=== PATIENT | male | born 1965 | race Caucasian/White ===

== ENCOUNTER 2016-09-10 12:04 | Emergency (ER) | payer BC ==
--- NOTE | ~2016-09-10 | EKG ---
PATIENT: ROBIN GREER UNIT #: [id number] Ventricular Rate: 77 BPM Atrial Rate: 77 BPM P-R Interval: 136 ms QRS Duration: 90 ms Q-T Interval: 374 ms QTC Calculation(Bezet): 423 ms P [place]: 65 degrees Calculated R [place]: 35 degrees Calculated T [place]: 70 degrees Diagnosis Line: Normal sinus rhythm Diagnosis Line: Nonspecific T wave abnormality Diagnosis Line: Abnormal ECG Diagnosis Line: Diagnosis Line: Confirmed by FAITH SIMEON MD ([id number]) on 09/11/2016 Diagnosis Line: 7:01:58 AM INTERPRETING MD: CAILIN DWYER
--- NOTE | ~2016-09-10 | CR72 ---
[facility] A Service of [facility] & [facility] RADIOLOGY TEXT RESULTS PATIENT: ROBIN GREER LOCATION: [facility] : 67 UNIT #: [id number] AGE: [address]: Larry Mann MD SEX: M ORDER DR: [id number] [facility]. [place], [place] [address] [id number] E MR#: [id number] Acc #: [id number] NAME: ROBIN GREER : 1965 SEX: M STUDY DATE/TIME: 09/10/2016 11:35 UNIT: [facility] ROOM: STUDY DESCRIPTION: CR Chest Single View Portable Attending Physician: Larry Mann M.D. Ordering Physician: Larry Mann M.D. MEDICAL IMAGING REPORT This report is preliminary unless electronic signature is present EXAM Chest x-ray 09/10/2016. HISTORY 50-year-old male in the ED complaining of 2-day history of shortness of air, cough and chest pain. TECHNIQUE AP upright chest images were obtained. FINDINGS The examination is negative. The lungs are expanded and clear. No visible pulmonary infiltrate or pleural effusion. Heart size and pulmonary vascularity are normal. IMPRESSION Negative chest. Dictated by... Todd Hartmann M.D. THIS IS AN ELECTRONICALLY VERIFIED REPORT Todd Hartmann M.D. at 09/11/2016 8:40 AM KIM/vivian TD: 09/10/2016 19:02 JOB #: [id number] MEDICAL IMAGING REPORT COPY
[2016-09-10 12:29] LABS: BASOPHIL# 0.1 X10e3 (0-0.3); BASOPHIL% 1.3 % (0-2.5); EOSINOPHIL# 0.3 X10e3 (0-0.7); EOSINOPHIL% 3.7 % (0.0-7.0); HEMATOCRIT 43.5 % (38.0-50.0); HEMOGLOBIN 15.2 gm/dL (13.0-16.0); LYMPHOCYTE# 2.2 X10e3 (1.0-3.5); LYMPHOCYTE% 31.1 % (17.0-45.0); MEAN CELL VOLUME 85.8 FL (83-96); MEAN CORPUSCULAR HEMOGLOBIN 29.9 PG (28-34); MEAN CORPUSCULAR HGB CONC 34.9 g/dL (30-36); MEAN PLATELET VOLUME 8.7 FL (6.5-11.5); MONOCYTE# 0.5 X10e3 (0-1.0); NEUTROPHIL# 4.1 X10e3 (1.5-7.1); NEUTROPHIL% 56.9 % (40-75); PLATELET COUNT 234 X10e3 (140-420); RED BLOOD COUNT 5.07 X10e (3.90-5.60); RED CELL DISTRIBUTION WIDTH 13.2 % (11.0-15.5); WHITE BLOOD COUNT 7.2 X10e3 (4.0-10.5)
[2016-09-10 12:33] LABS: DIFF IND NO
[2016-09-10 12:53] LABS: POC - CKMB 1.2 ng/mL (0.0-7.9); POC - TROPONIN <0.05 ng/mL (<=0.05)
[2016-09-10 12:58] LABS: ALBUMIN SERUM 4.8 g/dL (3.5-5.0); ALKALINE PHOSPHATASE 67 U/L (32-92); ALT (SGPT) 29 U/L (10-40); AST (SGOT) 19 U/L (10-42); BILIRUBIN, DIRECT 0.1 mg/dL (0.0-0.2); BILIRUBIN,INDIRECT 0.7 mg/dL (0.0-0.9); BILIRUBIN,TOTAL 0.8 mg/dL (0.2-2.0); BLOOD UREA NITROGEN 12 mg/dL (9-23); BUN/CREATININE RATIO 13.33; CALCIUM SERUM 9.5 mg/dL (8.4-10.2); CARBON DIOXIDE 28 mmol/L (22-31); CHLORIDE 102 mmol/L (100-111); CREATININE SERUM 0.9 mg/dL (0.6-1.4); GLOM FILT RATE Estimated ABOVE60 mL/min (>60); GLUCOSE FASTING 177 mg/dL (70-110); POTASSIUM 4.4 mmol/L (3.5-5.1); PROTEIN TOTAL SERUM 7.6 g/dL (6.0-8.3); SODIUM 138 mmol/L (135-145)
== END 2016-09-10 13:20 | disposition home or self-care (01) ==
LOC: CED 12:04
PROVIDERS: Emergency Medicine
DX: J44.1 Chronic obstructive pulmonary disease with (acute) exacerbation (principal); E11.9 Type 2 diabetes mellitus without complications
CPT/HCPCS: 36415; 71010; 80048; 80076; 82553; 84484; 85025; 93005; 94640; 99284; J2405; J2930

== ENCOUNTER 2017-03-01 06:21 | Emergency (ER) | payer BC ==
[~2017-03-01] VITALS: Ht 175.3 cm; Wt 108.9 kg
--- NOTE | ~2017-03-01 | CR72 ---
[facility] A Service of [facility] & [facility] RADIOLOGY TEXT RESULTS PATIENT: ROBIN GREER LOCATION: [facility] : 67 UNIT #: [id number] AGE: [address]: Clifford Sutton DO SEX: M ORDER DR: [id number] [facility] [address] [facility]. [place], [place] [address] [id number] E MR#: [id number] Acc #: [id number] NAME: ROBIN GREER : 1965 SEX: M STUDY DATE/TIME: 03/01/2017 8:48 UNIT: [facility] ROOM: STUDY DESCRIPTION: CR Chest Single View Portable Attending Physician: Clifford Sutton D.O. Ordering Physician: Clifford Sutton D.O. Primary Care Physician: No Primary Care Physician MEDICAL IMAGING REPORT This report is preliminary unless electronic signature is present EXAM Portable chest HISTORY Shortness of breath, throat swelling, and cough beginning on 02/28/2017. TECHNIQUE A single AP view of the chest was obtained. COMPARISON 09/10/2016 FINDINGS A single AP portable view of the chest shows both lungs to be clear. The heart is normal in size. The mediastinal contour is normal. No significant bone abnormalities are seen. IMPRESSION Normal portable chest. Dictated by... Adam Mims M.D. THIS IS AN ELECTRONICALLY VERIFIED REPORT Adam Mims M.D. at 03/01/2017 4:10 PM JUAN LUIS/megan TD: 03/01/2017 13:15 JOB #: [id number] MEDICAL IMAGING REPORT Page 1 of 1 COPY
--- NOTE | ~2017-03-01 | CR195 ---
[facility] A Service of [facility] & [facility] RADIOLOGY TEXT RESULTS PATIENT: ROBIN GREER LOCATION: [facility] : 67 UNIT #: [id number] AGE: [address]: Clifford Sutton DO SEX: M ORDER DR: [id number] [facility] [address] [place], [place] [address] [id number] E MR#: [id number] Acc #: [id number] NAME: ROBIN GREER : 1965 SEX: M STUDY DATE/TIME: 03/01/2017 7:34 UNIT: [facility] ROOM: STUDY DESCRIPTION: CR Neck Soft Tissue Attending Physician: Clifford Sutton D.O. Ordering Physician: Clifford Sutton D.O. Primary Care Physician: No Primary Care Physician MEDICAL IMAGING REPORT This report is preliminary unless electronic signature is present EXAM Soft tissue neck series 03/01/2017 HISTORY Pain and swelling in throat; feels like something caught. Short of air. FINDINGS AP and lateral radiographs of the neck obtained with soft tissue detail. Patient is missing multiple teeth. Scattered dental fillings. Degenerative change in the cervical spine most pronounced C5-C6. No acute-appearing bony abnormality. Prevertebral soft tissues show no definite abnormality. There is no indication of submucosal air. The epiglottis and aryepiglottic fold regions appear within normal limits, given obliquity. There is no radiodense foreign body. The lung apices appear clear. If further assessment of cervical soft tissues would assist in management, consider contrast-enhanced CT of neck. Dictated by... Ramon Gamez M.D. THIS IS AN ELECTRONICALLY VERIFIED REPORT Ramon Gamez M.D. at 03/03/2017 9:44 PM NICKOLAS/megan TD: 03/01/2017 11:47 JOB #: [id number] MEDICAL IMAGING REPORT Page 1 of 1 COPY
[2017-03-01 07:21] LABS: BASOPHIL# 0.1 X10e3 (0-0.3); DIFF IND NO; EOSINOPHIL# 0.1 X10e3 (0-0.7); EOSINOPHIL% 0.6 % (0.0-7.0); HEMATOCRIT 46.3 % (38.0-50.0); HEMOGLOBIN 15.9 gm/dL (13.0-16.0); LYMPHOCYTE# 2.2 X10e3 (1.0-3.5); LYMPHOCYTE% 14.8 % (17.0-45.0); MEAN CELL VOLUME 87.2 FL (83-96); MEAN CORPUSCULAR HEMOGLOBIN 29.9 PG (28-34); MEAN CORPUSCULAR HGB CONC 34.3 g/dL (30-36); MEAN PLATELET VOLUME 8.6 FL (6.5-11.5); MONOCYTE# 1.1 X10e3 (0-1.0); MONOCYTE% 7.3 % (3.0-12.0); NEUTROPHIL# 11.2 X10e3 (1.5-7.1); NEUTROPHIL% 76.3 % (40-75); PLATELET COUNT 283 X10e3 (140-420); RED BLOOD COUNT 5.31 X10e (3.90-5.60); RED CELL DISTRIBUTION WIDTH 13.8 % (11.0-15.5); WHITE BLOOD COUNT 14.7 X10e3 (4.0-10.5)
[2017-03-01 07:43] LABS: CALCIUM SERUM 9.7 mg/dL (8.4-10.2); GLOM FILT RATE Estimated 87.4 mL/min (>60); POTASSIUM 3.5 mmol/L (3.5-5.1)
[2017-03-01 09:09] LABS: POC - CKMB 1.2 ng/mL (0.0-7.9); POC - TROPONIN <0.05 ng/mL (<=0.05)
== END 2017-03-01 11:53 | disposition home or self-care (01) ==
LOC: CED 06:21
PROVIDERS: Emergency Medicine
DX: K12.2 Cellulitis and abscess of mouth (principal); J02.9 Acute pharyngitis, unspecified; I10 Essential (primary) hypertension; E11.9 Type 2 diabetes mellitus without complications; F17.200 Nicotine dependence, unspecified, uncomplicated
CPT/HCPCS: 36415; 70360; 71010; 80048; 82553; 84484; 85025; 87651; 96365; 96375; 99284; J0696; J1200; J1885; J2405; J2930